=== PATIENT | female | born 1980 | race Caucasian/White ===

== ENCOUNTER 2018-04-26 16:31 | Emergency (ER) | payer SELFPAY ==
[2018-04-26 17:01] LABS: URINE BLOOD (Dip) POC Trace-intact (NEGATIVE); URINE GLUCOSE (Dip) POC Negative (NEGATIVE); URINE KETONES (Dip) POC 1+ (NEGATIVE); URINE LEUKOCYTE EST (Dip) POC 1+ (NEGATIVE); URINE NITRITE (Dip) POC Negative (NEGATIVE); URINE TOTAL PROTEIN POC 1+ (NEGATIVE)
[2018-04-26] MEDS: ACETAMINOPHEN 325 MG TAB PO (17:10)
[2018-04-26] MEDS: LORAZEPAM 0.5 MG TAB PO (17:10)
== END 2018-04-26 18:05 | disposition home or self-care (01) ==
LOC: FTE 18:05
DX: F43.0 Acute stress reaction (principal)
CPT/HCPCS: 70450; 81003; 81025; 99284-25